=== PATIENT | female | born 1965 | race Caucasian/White ===

== ENCOUNTER 2020-03-21 01:38 | Outpatient (CLI) | payer OTHER, SELFPAY ==
[2020-03-21 18:17] LABS: SARS-CoV-2 RNA PCR Negative
== END 2020-03-21 01:39 | disposition home or self-care (01) ==
LOC: ANHCOVIDDT 01:38
PROVIDERS: PCP Family Medicine; Visit Provider Orthopaedic Surgery
DX: Z01.812 Encounter for preprocedural laboratory examination (principal); Z20.828 Contact with and (suspected) exposure to other viral communicable diseases
CPT/HCPCS: 87635; C9803; U0003

== ENCOUNTER 2020-03-21 08:26 | Outpatient (CLI) | payer OTHER, SELFPAY ==
--- NOTE | 2020-03-21 08:34 | ECG_ITS ---
Measurements Intervals [place] Rate: 62 P: 27 SC: 155 QRS: 10 QRSD: 106 T: 2 QT: 395 QTc: 404 Interpretive Statements SINUS RHYTHM WITH SINUS ARRHYTHMIA CONSIDER INFERIOR INFARCT, AGE INDETERMINATE BASELINE ARTIFACT- II, III, AVF ABNORMAL ECG Electronically Signed On 03-21-2020 9:09:16 CDT by Froy Hercules D.O.
[2020-03-21 09:30] LABS: Anion Gap 10 mmol/L (8-16); Blood Urea Nitrogen 17 mg/dL (7-17); Calcium 9.2 mg/dL (8.4-10.2); Carbon Dioxide 27 mmol/L (22-30); Chloride 104 mmol/L (98-107); Estimated Glomerular Filt Rate > 60; Glucose 103 mg/dL (65-105); Potassium 3.4 mmol/L (3.4-5.0); Sodium 141 mmol/L (137-145)
== END 2020-03-21 08:27 | disposition home or self-care (01) ==
LOC: ANHSURGERY 08:33
PROVIDERS: Anesthesiology; PCP Family Medicine; Visit Provider Orthopaedic Surgery
DX: I10 Essential (primary) hypertension (principal); Z01.818 Encounter for other preprocedural examination; R94.31 Abnormal electrocardiogram [ECG] [EKG]
CPT/HCPCS: 36415; 80048; 93005

== ENCOUNTER 2020-03-23 00:28 | Day surgery (SDC) | payer OTHER, SELFPAY ==
[2020-03-08 16:45] VITALS: BMI 39.3
--- NOTE | 2020-03-22 09:59 | WPDANESEPPF ---
Anes - Initial Pre Proc Eval Procedure: Operation Date: 03/23/20 08:30 Proposed Procedures p Right Carpal Tunnel Release - Louis Rosales MD Date/Time: 03/22/20 09:59 Surgeon: Louis Rosales MD Pre Op Diagnosis: Right Carpal Tunnel Syndrome Patient Data Age: 54 Gender: F Height: 1.57 m Weight: 97.52 kg Allergies Allergy/AdvReac Type Severity Reaction Status Date / Time No Known Allergies Allergy Verified 02/27/20 15:14 Home Medications Medication Instructions Recorded Confirmed Type ascorbate calcium (vitamin C) 500 500 mg PO DAILY 02/27/20 03/08/20 History mg tablet biotin 1,000 mcg chewable tablet 1,000 mcg PO DAILY 02/27/20 03/08/20 History clotrimazole-betamethasone 1 1 applic TOPICAL PRN PRN 02/27/20 03/08/20 History %-0.05 % topical cream hydrochlorothiazide 12.5 mg capsule 12.5 mg PO DAILY 02/27/20 03/08/20 History meloxicam 15 mg tablet 15 mg PO DAILY 02/27/20 03/08/20 History nebivolol 5 mg tablet 5 mg PO DAILY 02/27/20 03/08/20 History norethindrone 1 mg-ethinyl 1 tablet PO DAILY 02/27/20 03/08/20 History estradiol 20 mcg (24)-iron 75 mg (4) tablet omeprazole 20 mg capsule,delayed 20 mg PO DAILY 02/27/20 03/08/20 History release Patient hx anesthesia problems: none Family hx anesthesia problems: none PMFSH Past Medical History Medical History (Updated 03/22/20 @ 09:59 by Rivera Allan DO) Arthritis of carpometacarpal (CMC) joint of right thumb GERD (gastroesophageal reflux disease) Hammer toe Hypertension Plantar fasciitis Surgical History Surgical History History of elbow surgery (~01/27/18) Debridement Rt Lateral Epicondyle Family History Family History Mother Family history of malignant neoplasm Family history of arthritis Father Family history of heart disease in male family member before age 55 Social History Social History Smoking status: Never smoker Alcohol intake: current Substance use: never Living arrangements: with family Gender identity (if verbalized by the patient): Female Spiritual care concerns: No Anes - Eval Final PreProcedure Day of Procedure 03/22/20 09:59 Patient weight: obese Heart: regular rate and rhythm Lungs: clear to auscultation and normal air movement Airway: Mallampati scale class III Neurological: alert and oriented Last oral intake: >/= 8 hours ASA classification: III Emergent: no Anesthetic plan: proceed Anesthesia type and monitoring: general GIVS and standard monitoring Informed Consent: The patient's anesthetic plan and its attendant risks and benefits were discussed with the patient/family/POA. Questions were solicited and answers provided to the satisfaction of the patient/family/POA.
--- NOTE | 2020-03-23 07:26 | WPDHPUPDATE1 ---
History and Physical Update Update Date/Time: 03/23/20 07:26 History and Physical has been reviewed, including an updated exam of the patient. There are NO changes in the patient's condition. Risks, benefits, and alternatives have been discussed and questions answered. Patient agrees to proceed with procedure.
[2020-03-23] MEDS: ACETAMINOPHEN 500 MG TABLET 1000 MG PO (07:42)
[2020-03-23] MEDS: LACTATED RINGERS 1,000 ML 30 ML IV CONT (07:49)
[2020-03-23] MEDS: KETOROLAC 15 MG/ML VIAL (*BKC) IV PUSH (07:50)
[2020-03-23 07:51] VITALS: BP 145/76; PULSE 70; RESP 16; TEMP 36.7; O2SAT 100
[2020-03-23] MEDS: BUPIVACAINE/EPINEPHRINE 0.5% 10 ML VIAL INFILTRATE (08:46)
[2020-03-23 09:06] VITALS: BP 114/64; PULSE 86; RESP 20; O2SAT 97
[2020-03-23 09:36] VITALS: BP 123/71; PULSE 74; RESP 16
[2020-03-23 10:06] VITALS: BP 122/82; PULSE 62; RESP 16
--- NOTE | 2020-03-23 17:52 | PM.PROC ---
Procedure Note - Detailed Date of procedure: 03/23/20 Pre-op diagnosis: Right Carpal Tunnel Syndrome Right Carpal Tunnel Syndrome Post-op diagnosis: same Procedure performed: Carpal Tunnel Release Anesthesia: GLMA and MAC Surgeon: Louis Rosales MD Estimated blood loss (mL): 1 Complications: None Condition: stable Findings: Operative details. The hand was prepped and draped in the usual sterile fashion sedation anesthesia was given with propofol. The proposed incision was marked using typical anatomic landmarks. 4ML 0.5% Marcaine with epinephrine was injected along the incision line and at the distal forearm. The limb was exsanguinated and the tourniquet inflated to 250 millimeters of mercury. A longitudinal incision was taken sharply. Dissection was brought down to the transverse carpal ligament. Under direct vision the ligament was incised sharply. The proximal release was carried out with dissection scissors. The contents of the carpal canal were protected with a [place] elevator. The transverse carpal ligament was confirmed to be widely patent. The tourniquet was released. Hemostasis was obtained. The wound was closed with a horizontal mattress Prolene suture. A sterile bulky dressing was applied. The patient was brought to the recovery room in stable condition. There were no complications.
== END 2020-03-23 10:25 | disposition home or self-care (01) ==
PROVIDERS: PCP Family Medicine; Visit Provider Orthopaedic Surgery
PROC: (CPT 64721; principal; 2020-03-23 08:30)
DX: G56.01 Carpal tunnel syndrome, right upper limb (principal); I10 Essential (primary) hypertension; K21.9 Gastro-esophageal reflux disease without esophagitis; E66.01 Morbid (severe) obesity due to excess calories; Z68.41 Body mass index [BMI] 40.0-44.9, adult
CPT/HCPCS: 64721; A9270; J1100; J1885; J2250; J2405; J2704; J3010; J7120

== ENCOUNTER 2021-08-30 12:48 | Outpatient (CLI) | payer OTHER, SELFPAY ==
--- NOTE | 2021-08-30 13:01 | ECG_ITS ---
Measurements Intervals [place] Rate: 70 P: 12 [place]: 155 QRS: 5 QRSD: 89 T: -2 QT: 374 QTc: 404 Interpretive Statements SINUS RHYTHM MINIMAL VOLTAGE CRITERIA FOR LVH, CONSIDER NORMAL VARIANT [MEETS CRITERIA IN ONE OF: R(aVL), S(V1), R(V5), R(V5/V6)+S(V1)] CONSIDER PREVIOUS INFERIOR INFARCTION COMPARED TO ECG 03/21/2020 09:18:36 NO SIGNIFICANT CHANGES Electronically Signed On 08-30-2021 14:40:10 CDT by Marko Dugan M.D.
[2021-08-30 13:33] LABS: Anion Gap 9 mmol/L (8-16); Blood Urea Nitrogen 15 mg/dL (7-17); Calcium 8.9 mg/dL (8.4-10.2); Carbon Dioxide 25 mmol/L (22-30); Chloride 103 mmol/L (98-107); Estimated Glomerular Filt Rate > 60; Glucose 88 mg/dL (65-110); Potassium 3.5 mmol/L (3.4-5.0); Sodium 137 mmol/L (137-145)
== END 2021-08-30 12:49 | disposition home or self-care (01) ==
LOC: ANHSURGERY 12:56
PROVIDERS: Anesthesiology; PCP Family Medicine; Visit Provider Orthopaedic Surgery
DX: Z01.818 Encounter for other preprocedural examination (principal); Z51.81 Encounter for therapeutic drug level monitoring; Z79.899 Other long term (current) drug therapy; I10 Essential (primary) hypertension
CPT/HCPCS: 36415; 80048; 93005

== ENCOUNTER 2021-09-03 01:33 | Day surgery (SDC) | payer OTHER, SELFPAY ==
[2021-08-27 15:07] VITALS: BMI 44.2
--- NOTE | 2021-08-27 15:30 | PC.NURSE ---
Addendum entered by Francie Sandoval RN 08/27/21 15:32: LAST DOSE OF MELOXICAM 08/26/21 Original Note: Report to the Outpatient Waiting Room, entrance under the green pavilion located off [facility], at time 9:00 on date 09/03/21. OR Time: 11:00. - You and your visitor will be asked a series of questions to screen for COVID 19 for your protection. - A mask is required within the hospital. One visitor will be allowed to accompany the patient into the hospital. Patients visitor will be instructed to remain with patient at all times or leave the building. We will allow the visitor to come back to the postoperative area when patient is ready. Preoperative COVID Testing Requirements: No COVID Test needed if: (proof is required; if not received patient will have Rapid Test prior to entry) - Patient has received COVID Vaccine at least 14 days prior to procedure date or - Patient has positive COVID test result within last 90 days of surgery date. COVID Test needed if above criteria is not met Patients may have clear liquids (water, carbonated beverages, clear teas, apple juice) until 3 hours prior to surgery (8:00) with a maximum of 20 ounces. - No food from midnight until time of surgery Take the following medications with a SIP of water the morning of surgery: CARVEDILOL Medications to discontinue per physician: VITAMINS/SUPPLEMENTS Date to take last dose: 08/30/21 Please no make-up, nail british, hairspray, perfume, deodorant, or body powder the day of surgery. No jewelry (including any body piercings) or valuables the day of surgery, leave them at home. Please take a shower or bath the night before, or the morning of, surgery with an antibacterial soap. Wear comfortable, loose fitting clothing. - Jewelry must be removed prior to entering the operating room. Rings and piercings that are not removed may be cut off. - The hospital will not accept responsibility for valuables. - Please leave all valuables, including medications, at home the day of surgery. If you are going home after surgery, a licensed star route mail driver must drive you home. - NO public transportation without another adult. - We recommend that an adult stay with you for 24 hours following discharge. - We also recommend that you do not drive, make important decision, drink alcoholic beverages, or take any drugs that were not prescribed by your health care provider for at least 24 hours after your discharge time. Follow any additional instructions given to you from your surgeon. Telephone instructions given to FARHAN CHAKRABORTY and asked if any additional questions and then verbalized understanding. Patient advised to call surgeon office or pre surgery nurse liaison [phone] if any additional questions.
--- NOTE | 2021-09-03 07:19 | WPDHPUPDATE1 ---
History and Physical Update Update Date/Time: 09/03/21 07:19 History and Physical has been reviewed, including an updated exam of the patient. There are NO changes in the patient's condition. Risks, benefits, and alternatives have been discussed and questions answered. Patient agrees to proceed with procedure.
--- NOTE | 2021-09-03 08:02 | WPDANESEPPF ---
Anes - Initial Pre Proc Eval Procedure: Operation Date: 09/03/21 11:00 Proposed Procedures p Arthroscopic Interposition Arthroplasty Right Thumb - Louis Rosales MD Date/Time: 09/03/21 08:02 Surgeon: Louis Rosales MD Pre Op Diagnosis: arhtritis of CMC joint right thumb Patient Data Age: 56 Gender: F Height: 1.59 m Weight: 111.58 kg Allergies Allergy/AdvReac Type Severity Reaction Status Date / Time No Known Allergies Allergy Verified 08/27/21 15:04 Home Medications Medication Instructions Recorded Confirmed Type ascorbate calcium (vitamin C) 500 500 mg PO DAILY 02/27/20 08/27/21 History mg tablet biotin 1,000 mcg chewable tablet 1,000 mcg PO DAILY 02/27/20 08/27/21 History hydrochlorothiazide 12.5 mg capsule 12.5 mg PO DAILY 02/27/20 08/27/21 History meloxicam 15 mg tablet 15 mg PO DAILY 02/27/20 08/27/21 History norethindrone 1 mg-ethinyl 1 tablet PO DAILY 02/27/20 08/27/21 History estradiol 20 mcg (24)-iron 75 mg (4) tablet omeprazole 20 mg capsule,delayed 20 mg PO DAILY 02/27/20 08/27/21 History release carvedilol 6.25 mg tablet 6.25 mg PO Q12H 06/06/21 08/27/21 History calcium phos,dibas-vitamin D3 1 tablet PO DAILY 08/27/21 08/27/21 History oxycodone-acetaminophen 1 - 2 tablet PO Q4-6H PRN #30 09/03/21 Rx tablet MDD 6 Patient hx anesthesia problems: none Family hx anesthesia problems: none Results Review: All pre-operative results and documents have been reviewed as part of the pre-operative evaluation. [facility] Past Medical History Medical History Arthritis of carpometacarpal (CMC) joint of right thumb GERD (gastroesophageal reflux disease) Hammer toe Hypertension Plantar fasciitis Surgical History Surgical History History of elbow surgery (~01/27/18) Debridement Rt Lateral Epicondyle Family History Family History Mother Family history of malignant neoplasm Family history of arthritis Father Family history of heart disease in male family member before age 55 Social History Social History Smoking status: Never smoker Alcohol intake: current Alcohol use details: 3/MONTH Substance use: never Substance use type: does not use Living arrangements: with family Gender identity (if verbalized by the patient): Female Spiritual care concerns: No Anes - Eval Final PreProcedure Day of Procedure 09/03/21 08:02 Patient weight: morbidly obese Heart: regular rate and rhythm Lungs: clear to auscultation and normal air movement Airway: Mallampati scale class II Neurological: alert and oriented Last oral intake: >/= 8 hours ASA classification: III Emergent: no Anesthetic plan: proceed Anesthesia type and monitoring: general LMA and standard monitoring Results Review: All pre-operative results and documents have been reviewed as part of the pre-operative evaluation. Informed Consent: The patient's anesthetic plan and its attendant risks and benefits were discussed with the patient/family/POA. Questions were solicited and answers provided to the satisfaction of the patient/family/POA.
[2021-09-03 09:10] VITALS: BP 146/96; PULSE 82; RESP 18; TEMP 36.4; O2SAT 100
[2021-09-03] MEDS: LACTATED RINGERS 1,000 ML 30 ML IV CONT ×2 (10:08→12:25)
[2021-09-03] MEDS: KETOROLAC 15 MG/ML VIAL (*BKC) IV PUSH (10:09)
[2021-09-03] MEDS: ACETAMINOPHEN 500 MG TABLET 1000 MG PO (10:09)
[2021-09-03] MEDS: ceFAZolin 2 GM/D5W 50 ML 2 GM/50 ML BAG IVPB (10:32)
[2021-09-03] MEDS: BUPIVACAINE HCL 0.5% PF 30 ML VIAL INFILTRATE (11:06)
[2021-09-03 12:25] VITALS: BP 118/70; PULSE 90; RESP 20; TEMP 36.1; O2SAT 98
[2021-09-03 12:40] VITALS: BP 120/65; PULSE 80; RESP 18; O2SAT 100
[2021-09-03 12:55] VITALS: BP 120/60; PULSE 74; RESP 20; O2SAT 100
[2021-09-03 13:01] VITALS: BP 134/68; PULSE 76; RESP 18
[2021-09-03 13:30] VITALS: BP 129/65; PULSE 66; RESP 18
--- NOTE | 2021-09-03 15:52 | W.PM.PROC2 ---
Procedure Note - Detailed Date of Procedure 09/03/21 Pre-op Diagnosis arhtritis of CMC joint right thumb Post-op Diagnosis Same Procedure Performed Arthroscopic interposition arthroplasty, right CMC joint of the thumb. Surgeon Louis Rosales MD Motor Vehicle Lecturer Gemma Gutierrez PA-C Anesthesia General Indications Severe persistent pain despite conservative treatment including bracing and injections and therapy. Findings Complete loss of cartilage on the trapezium. Bone spurs. Description of Procedure Preoperative antibiotics were given. The patient was given a general anesthetic. The hand was prepped and draped in the usual sterile fashion. The arm was stabilized to the arm board, and a non sterile tourniquet placed. The suspension apparatus was draped sterilely. The thumb was attached to the fingertrap with 5 to 8 pounds of traction. Careful palpation revealed the location of the basal thumb joint. The limb was exsanguinated and the tourniquet inflated to 250 milliliters of mercury during the procedure. Shallow skin incisions were created for typical ulnar and radial portal sites. Careful blunt dissection was carried down to the joint, and the small joint 2.7mm arthroscope was introduced. Inspection revealed significant synovitis and degenerative changes with exposed bone. Partial resection of the trapezoid was carried out with the 2.9 millimeter gracia. Approximately 3 to 4 millimeters of bone was resected. Careful attention to the periphery of the bone was accomplished, and the tissue was carefully debrided with the shaver. The ligamentous structures were carefully preserved at the capsule. The joint space was measured. Graft jacket was cut to be folded into double thickness. The graft was brought in through the portal with a hemostat. The graft was laid in nicely and the arthroscope was used to inspect the graft and assure appropriate placement. The joint surface was well covered. The arthroscopic instruments were removed. Traction was released. The wound was closed with interrupted 3-0 Prolene suture followed by bulky dressing. A thumb spica splint was applied. The patient was extubated and brought to the recovery room in stable condition. There were no complications. 10 milliliters of 0.5% Marcaine with epinephrine was injected for additional perioperative pain control. Estimated Blood Loss -5.0 Packing No Pathology None sent Complications No immediate complications Condition Stable Disposition Same day
== END 2021-09-03 13:55 | disposition home or self-care (01) ==
PROVIDERS: PCP Family Medicine; Visit Provider Orthopaedic Surgery
PROC: (CPT 29840; principal; 2021-09-03 11:00)
DX: M18.11 Unilateral primary osteoarthritis of first carpometacarpal joint, right hand (principal); I10 Essential (primary) hypertension; K21.9 Gastro-esophageal reflux disease without esophagitis; E66.01 Morbid (severe) obesity due to excess calories; Z68.41 Body mass index [BMI] 40.0-44.9, adult
CPT/HCPCS: 25447; 36415; 80048; 93005; A4565; A9270; J0690; J1100; J1885; J2250; J2370; J2405; J2704; J3010; J7120

== ENCOUNTER 2023-01-14 13:47 | Outpatient (CLI) | payer OTHER, SELFPAY ==
--- NOTE | 2023-01-14 14:00 | ECG_ITS ---
Measurements Intervals [place] Rate: 75 P: 14 [place]: 158 QRS: 7 QRSD: 89 T: 6 QT: 366 QTc: 409 Interpretive Statements SINUS RHYTHM MINIMAL VOLTAGE CRITERIA FOR LVH, CONSIDER NORMAL VARIANT [MEETS CRITERIA IN ONE OF: R(aVL), S(V1), R(V5), R(V5/V6)+S(V1)] POOR R-WAVE PROGRESSION, pOSSIBLE ANTERIOR MYOCARDIAL INFARCTION Low voltage COMPARED TO ECG 08/30/2021 13:11:25 NO SIGNIFICANT CHANGES Electronically Signed On 01-14-2023 14:27:30 CDT by Nani Curry M.D.
[2023-01-14 14:35] LABS: Anion Gap 9 mmol/L (8-16); Blood Urea Nitrogen 15 mg/dL (7-17); Calcium 9.5 mg/dL (8.4-10.2); Carbon Dioxide 28 mmol/L (22-30); Chloride 101 mmol/L (98-107); Estimated Glomerular Filt Rate > 60; Glucose 108 mg/dL (65-110); Potassium 3.3 mmol/L (3.4-5.0); Sodium 138 mmol/L (137-145)
== END 2023-01-14 13:48 | disposition home or self-care (01) ==
LOC: ANHSURGERY 13:58
PROVIDERS: Anesthesiology; PCP Family Medicine; Visit Provider Orthopaedic Surgery
DX: Z79.899 Other long term (current) drug therapy (principal); I10 Essential (primary) hypertension; Z01.818 Encounter for other preprocedural examination
CPT/HCPCS: 36415; 80048; 93005

== ENCOUNTER 2023-01-19 01:35 | Day surgery (SDC) | payer OTHER, SELFPAY ==
[2023-01-12 13:35] VITALS: BMI 43.2
--- NOTE | 2023-01-12 13:41 | PC.NURSE ---
Report to the Outpatient Waiting Room, entrance under the green pavilion located off [facility], at time 1:00 on date 01/19/23. Planned Procedure Time: 3:00. Time changes happen often and if your time is changed the preop area will call you the afternoon before. - You and your visitor will be asked to self-screen and do not enter if you have any COVID symptoms. - A mask is optional within the hospital at this time. Patients may have clear liquids (water, carbonated beverages, clear teas, apple juice) until 3 hours prior to surgery (12:00) with a maximum of 20 ounces. - No food from midnight until time of surgery Take the following medications with a SIP of water the morning of surgery: CARVEDILOL DO NOT STOP ANY OF YOUR OTHER PRESCRIPTION MEDICATIONS PRIOR TO SURGERY ?EXCEPT THE FOLLOWING Medications to discontinue per physician: VITAMINS/SUPPLEMENTS Date to take last dose: 01/15/23 STOP MELOXICAM 7 DAYS PRIOR TO PROCEDURE Please no make-up, nail nauruan, hairspray, perfume, deodorant, or body powder the day of surgery. No jewelry (including any body piercings) or valuables the day of surgery, leave them at home. Please take a shower or bath the night before, or the morning of, surgery with an antibacterial soap. Wear comfortable, loose fitting clothing. - Jewelry must be removed prior to entering the operating room. Rings and piercings that are not removed may be cut off. - The hospital will not accept responsibility for valuables. - Please leave all valuables, including medications, at home the day of surgery. If you are going home after surgery, a licensed team cdl driver must drive you home. - NO public transportation without another adult if you receive anesthesia. - We recommend that an adult stay with you for 24 hours following discharge. - We also recommend that you do not drive, make important decision, drink alcoholic beverages, or take any drugs that were not prescribed by your health care provider for at least 24 hours after your discharge time. Follow any additional instructions given to you from your surgeon. If you or anyone in your household have experienced Covid symptoms in the past week, please notify your surgeon or the nurse liaison at the phone number below for possible testing. Telephone instructions given to PT - FARHAN CHAKRABORTY and asked if any additional questions and then verbalized understanding. Patient advised to call surgeon office or pre surgery nurse liaison [phone] if any additional questions.
[2023-01-19] VITALS (7 sets, daily range): BP systolic 120–140; BP diastolic 66–92; PULSE 62–95; RESP 14–18; TEMP 36.3–36.4; O2SAT 94–100
--- NOTE | 2023-01-19 08:56 | WPDANESEPPF ---
Anes - Initial Pre Proc Eval Procedure: Operation Date: 01/19/23 15:00 Proposed Procedures p Right Trigger Thumb Release - Louis Rosales MD Date/Time: 01/19/23 08:56 Surgeon: Louis Rosales MD Pre Op Diagnosis: Right Trigger Thumb Patient Data Age: 57 Gender: F Height: 1.59 m Weight: 108.9 kg Allergies Allergy/AdvReac Type Severity Reaction Status Date / Time No Known Allergies Allergy Verified 01/19/23 13:51 Home Medications Medication Instructions Recorded Confirmed Type ascorbate calcium (vitamin C) 500 500 mg PO DAILY 02/27/20 01/14/23 History mg tablet biotin 1,000 mcg chewable tablet 1,000 mcg PO DAILY 02/27/20 01/14/23 History hydrochlorothiazide 12.5 mg capsule 12.5 mg PO DAILY 02/27/20 01/14/23 History meloxicam 15 mg tablet 15 mg PO DAILY 02/27/20 01/14/23 History omeprazole 20 mg capsule,delayed 20 mg PO DAILY 02/27/20 01/14/23 History release carvedilol 6.25 mg tablet 6.25 mg PO Q12H 06/06/21 01/19/23 History calcium carbonate 600 mg-vitamin 1 tablet PO DAILY 01/12/23 01/14/23 History D3 5 mcg (200 unit) tablet Patient hx anesthesia problems: none Family hx anesthesia problems: none Results Review: All pre-operative results and documents have been reviewed as part of the pre-operative evaluation. [facility] Past Medical History Medical History Arthritis of carpometacarpal (CMC) joint of right thumb GERD (gastroesophageal reflux disease) Hammer toe Hypertension Plantar fasciitis Surgical History Surgical History History of elbow surgery (~01/27/18) Debridement Rt Lateral Epicondyle History of hand surgery (~09/03/21) CMC Arthroplasty Family History Family History Mother Family history of malignant neoplasm Family history of arthritis Father Family history of heart disease in male family member before age 55 Social History Social History (Reviewed 01/14/23 @ 15:02 by MAK Tang Smoking status: Never smoker Alcohol intake: current Drinks per week: 1 Alcohol use details: 3/MONTH Substance use: never Substance use type: does not use Lack of Transportation: No Lack of Food: Never True Current Housing: I Have Housing Concerned About Future Housing: No Difficulty Paying Gas/Electric Bills: No Difficulty Paying for Meds: No Currently Unemployed: No Education: Bachelor's Degree Difficulty w/ Childcare or Family Care: No Living arrangements: with family Gender identity (if verbalized by the patient): Female Spiritual care concerns: No Anes - Eval Final PreProcedure Day of Procedure 01/19/23 08:56 Patient weight: morbidly obese Heart: regular rate and rhythm Lungs: clear to auscultation Airway: Mallampati scale class II Neurological: alert and oriented Last oral intake: >/= 8 hours ASA classification: III Emergent: no Anesthetic plan: proceed Anesthesia type and monitoring: general LMA and standard monitoring Results Review: All pre-operative results and documents have been reviewed as part of the pre-operative evaluation. Informed Consent: The patient's anesthetic plan and its attendant risks and benefits were discussed with the patient/family/POA. Questions were solicited and answers provided to the satisfaction of the patient/family/POA.
[2023-01-19] MEDS: LACTATED RINGERS 1,000 ML 30 ML IV CONT (13:30)
[2023-01-19] MEDS: ACETAMINOPHEN 500 MG TABLET 1000 MG PO (13:30)
[2023-01-19] MEDS: KETOROLAC 15 MG/ML VIAL (*BKC) IV PUSH (13:30)
[2023-01-19] MEDS: ceFAZolin 2 GM/D5W 50 ML 2 GM/50 ML BAG IVPB (15:02)
--- NOTE | 2023-01-19 15:02 | WPDHPUPDATE1 ---
History and Physical Update Update Date/Time: 01/19/23 15:02 History and Physical has been reviewed, including an updated exam of the patient. There are NO changes in the patient's condition. Risks, benefits, and alternatives have been discussed and questions answered. Patient agrees to proceed with procedure.
--- NOTE | 2023-01-19 15:03 | W.PM.PROC2 ---
Procedure Note - Detailed Date of Procedure 01/19/23 Pre-op Diagnosis Right Trigger Thumb Post-op Diagnosis Same Procedure Performed Right trigger thumb release. Surgeon Louis Rosales MD Anesthesia General Description of Procedure General anesthetic administered. 3ML .25% Marcaine injection at the MCP flexion crease. Transverse incision over the palpable nodule. Blunt dissection to the A1 chuckie. Sharp division of the chuckie. The flexor tendons pulled into the wound and complete release confirmed. Wound closed with nylon suture. Sterile bulky dressing applied. Tourniquet used during procedure. Estimated Blood Loss 1 Complications No immediate complications Condition Stable Disposition PACU [facility] Billing Surgery - Charge Forward: Surgery Billing
[2023-01-19] MEDS: BUPIVACAINE/EPINEPHRINE 0.25% 50 ML VIAL INFILTRATE (15:27)
[2023-01-19] MEDS: oxyCODONE HCL (*CRX) 5 MG TAB IR PO (16:52)
== END 2023-01-19 15:10 | disposition home or self-care (01) ==
PROVIDERS: PCP Family Medicine; Visit Provider Orthopaedic Surgery
PROC: (CPT 26055; principal; 2023-01-19 15:00)
DX: M65.311 Trigger thumb, right thumb (principal); K21.9 Gastro-esophageal reflux disease without esophagitis; I10 Essential (primary) hypertension
CPT/HCPCS: 26055; 36415; 80048; 93005; A9270; J0690; J1100; J1885; J2405; J2704; J3010; J7120

== ENCOUNTER 2024-02-23 12:36 | Outpatient (CLI) | payer OTHER, SELFPAY ==
--- NOTE | ~2024-02-23 | MR_ITS ---
MRI of the right knee Clinical history: Pain, meniscal tear Technique: Coronal proton density and proton density-weighted images, sagittal proton-density and T2 fat-sat images, and axial proton-density fat-saturated images were acquired. Findings: Anterior and posterior cruciate ligaments are intact. Medial collateral ligament and the la teral collateral ligament complex are intact. Popliteus tendon is intact. There are probable radial tear at the posterior root of the medial meniscus. No lateral meniscal tear evident. There is grade IV chondromalacia the patellar apex with probable reactive marrow edema at the subchon dral plate inferior aspect of the patella. There is extensive mild to moderate chondromalacia the fem oral trochlea. There is high-grade condylar shown on both sides of the medial compartment. Extensor mechanism is intact. Small to moderate joint effusion present. Small Gordon cyst present. Impression: Radial tear at the posterior root of the medial meniscus. 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 Small to moderate joint effusion with small Gordon's cyst. Reviewed, dictated and finalized at [facility]. Impression: Radial tear at the posterior root of the medial meniscus. 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 Small to moderate joint effusion with small Gordon's cyst.
== END 2024-02-23 12:37 | disposition home or self-care (01) ==
PROVIDERS: PCP Family Medicine; Visit Provider Orthopaedic Surgery
DX: S83.241A Other tear of medial meniscus, current injury, right knee, initial encounter (principal); M22.41 Chondromalacia patellae, right knee; M25.461 Effusion, right knee; M71.21 Synovial cyst of popliteal space [Baker], right knee
CPT/HCPCS: 73721

== ENCOUNTER 2024-03-23 12:29 | Outpatient (CLI) | payer OTHER, SELFPAY ==
--- NOTE | 2024-03-23 12:33 | ECG_ITS ---
Test Date: 2024-03-23 13:01:38 Measurements Intervals [place] Rate: 66 P: 16 PA: 162 QRS: 3 QRSD: 88 T: -1 QT: 381 QTc: 400 Interpretive Statements SINUS RHYTHM MINIMAL VOLTAGE CRITERIA FOR LVH, CONSIDER NORMAL VARIANT [MEETS CRITERIA IN ONE OF: R(aVL), S(V1), R(V5), R(V5/V6)+S(V1)] POSSIBLE ANTERIOR MYOCARDIAL INFARCTION [30 ms Q WAVE IN V3/V4, OR R < 0.2 mV IN V4], PROBABLY OLD No previous ECG available for comparison Electronically Signed On 03-23-2024 14:49:15 CDT by Josesito Morgan M.D.
[2024-03-23 13:43] LABS: Anion Gap 9 mmol/L (4-12); Blood Urea Nitrogen 16 mg/dL (7-17); Calcium 9.5 mg/dL (8.4-10.2); Carbon Dioxide 28 mmol/L (22-30); Chloride 102 mmol/L (98-107); Estimated Glomerular Filt Rate > 60; Glucose 79 mg/dL (65-110); Potassium 3.4 mmol/L (3.4-5.0); Sodium 139 mmol/L (137-145)
== END 2024-03-23 12:30 | disposition home or self-care (01) ==
PROVIDERS: Anesthesiology; PCP Family Medicine; Visit Provider Orthopaedic Surgery
DX: I10 Essential (primary) hypertension (principal); Z79.899 Other long term (current) drug therapy
CPT/HCPCS: 36415; 80048; 93005

== ENCOUNTER 2024-03-29 00:59 | Day surgery (SDC) | payer OTHER, SELFPAY ==
[2024-03-17 13:48] VITALS: BMI 43.9
--- NOTE | 2024-03-17 13:50 | PC.NURSE ---
Report to the Outpatient Waiting Room, entrance under the green pavilion located off [facility], at time _1100_ on date _[id number]_. Planned Procedure Time: _1pm_.? Time changes happen often and if your time is changed the preop area will call you the afternoon before. - You and your visitor will be asked to self-screen and do not enter if you have any COVID symptoms. Please call surgeon if you need to reschedule. - A mask is optional within the hospital at this time. Patients may have clear liquids (water, carbonated beverages, clear teas, apple juice) until 3 hours prior to surgery with a maximum of 20 ounces. - No food from midnight until time of surgery and no smoking Take only the following medications with a SIP of water on the morning of surgery: ___Carvidilol___ DO NOT STOP ANY OF YOUR OTHER PRESCRIPTION MEDICATIONS PRIOR TO SURGERY EXCEPT THE FOLLOWING Medications to discontinue per physician __Meloxicam stop 03-23-2024, Hold all vitamins [id number]___ Please no make-up, nail irish, hairspray, perfume, deodorant, or body powder the day of surgery.? No jewelry (including any body piercings) or valuables the day of surgery, leave them at home.? Please take a shower or bath the night before, or the morning of, surgery with an antibacterial soap.? Wear comfortable, loose fitting clothing.? - Jewelry must be removed prior to entering the operating room.? Rings and piercings that are not removed may be cut off. - The hospital will not accept responsibility for valuables.? - Please leave all valuables, including medications, at home the day of surgery. If you are going home after surgery, a licensed customer service driver must drive you home.? - NO public transportation without another adult if you receive anesthesia. - We recommend that an adult stay with you for 24 hours following discharge. - We also recommend that you do not drive, make important decision, drink alcoholic beverages, or take any drugs that were not prescribed by your health care provider for at least 24 hours after your discharge time. Follow any additional instructions given to you from your surgeon. Telephone instructions given to _Ling___and asked if any additional questions and then verbalized understanding. Patient advised to call surgeon office or pre surgery nurse liaison [phone] if any additional questions.
[2024-03-29] VITALS (7 sets, daily range): BP systolic 119–154; BP diastolic 65–88; PULSE 60–84; RESP 14–21; TEMP 36.2–37.3; O2SAT 96–100
--- NOTE | 2024-03-29 07:25 | WPDHPUPDATE1 ---
History and Physical Update Update Date/Time: 03/29/24 07:25 History and Physical has been reviewed, including an updated exam of the patient. There are NO changes in the patient's condition. Risks, benefits, and alternatives have been discussed and questions answered. Patient agrees to proceed with procedure.
[2024-03-29] MEDS: LACTATED RINGERS 1,000 ML 30 ML IV CONT ×2 (11:00→12:35)
[2024-03-29] MEDS: ACETAMINOPHEN 500 MG TABLET 1000 MG PO (11:15)
--- NOTE | 2024-03-29 11:18 | P.PNAN_ITS ---
Anes - Initial Pre Proc Eval Procedure: Operation Date: 03/29/24 13:00 Proposed Procedures p Right Knee Arthroscopic Partial Medial Meniscectomy - Louis Rosales MD Date/Time: 03/29/24 11:18 Surgeon: Louis Rosales MD Pre Op Diagnosis: Rt Knee Medial Meniscus Tear Patient Data Age: 58 Gender: F Height: 1.59 m Weight: 110.9 kg Allergies Allergy/AdvReac Type Severity Reaction Status Date / Time No Known Allergies Allergy Verified 03/23/24 13:30 Home Medications Medication Instructions Recorded Confirmed Type ascorbate calcium (vitamin C) 500 500 mg PO DAILY 02/27/20 03/17/24 History mg tablet biotin 1,000 mcg chewable tablet 1,000 mcg PO DAILY 02/27/20 03/17/24 History hydrochlorothiazide 12.5 mg capsule 12.5 mg PO DAILY 02/27/20 03/17/24 History meloxicam 15 mg tablet 15 mg PO DAILY 02/27/20 03/17/24 History omeprazole 20 mg capsule,delayed 20 mg PO DAILY 02/27/20 03/17/24 History release carvedilol 6.25 mg tablet 6.25 mg PO Q12H 06/06/21 03/17/24 History calcium 600 mg (as 1 tablet PO DAILY 01/12/23 03/17/24 History carbonate)-vitamin D3 5 mcg (200 unit) tablet tramadol 50 mg tablet 50 mg PO Q6H PRN pain #30 tabs 01/15/24 03/17/24 Rx Patient hx anesthesia problems: none Family hx anesthesia problems: none Results Review: All pre-operative results and documents have been reviewed as part of the pre- operative evaluation. [facility] Past Medical History Medical History Arthritis of carpometacarpal (CMC) joint of right thumb GERD (gastroesophageal reflux disease) Hammer toe Hypertension Plantar fasciitis Surgical History Surgical History History of elbow surgery (~01/27/18) Debridement Rt Lateral Epicondyle History of hand surgery (~09/03/21) CMC Arthroplasty Hx of hand surgery (~11/21/22) Rt Thumb Trigger Finger Release Family History Family History Mother Family history of malignant neoplasm Family history of arthritis Father Family history of heart disease in male family member before age 55 Social History Social History Smoking status: Never smoker Alcohol intake: current Drinks per week: 1 Alcohol use details: 3/MONTH Substance use: never Substance use type: does not use Do You Feel Safe in your Home?: Yes Lack of Transportation: No Lack of Food: Never True Current Housing: I Have Housing Concerned About Future Housing: No Difficulty Paying Gas/Electric Bills: No Difficulty Paying for Meds: No Currently Unemployed: No Education: Bachelor's Degree Difficulty w/ Childcare or Family Care: No Living arrangements: with family Gender identity (if verbalized by the patient): Female Spiritual care concerns: No Anes - Eval Final PreProcedure Day of Procedure 03/29/24 11:18 Patient weight: morbidly obese Heart: regular rate and rhythm Lungs: clear to auscultation Airway: Mallampati scale class II Neurological: alert and oriented Last oral intake: >/= 8 hours ASA classification: III Emergent: no Anesthetic plan: proceed Anesthesia type and monitoring: general LMA and standard monitoring Results Review: All pre-operative results and documents have been reviewed as part of the pre- operative evaluation. Informed Consent: The patient's anesthetic plan and its attendant risks and benefits were discussed with the patient/family/POA. Questions were solicited and answers provided to the satisfaction of the patient/family/POA.
[2024-03-29] MEDS: KETOROLAC 15 MG/ML VIAL (*BKC) IV PUSH (11:45)
[2024-03-29] MEDS: ceFAZolin 2 GM/D5W 50 ML 2 GM/50 ML BAG IVPB (11:52)
[2024-03-29] MEDS: BUPIVACAINE/EPINEPHRINE 0.5% 50 ML VIAL 30 ML INFILTRATE (12:11)
--- NOTE | 2024-03-29 13:49 | W.PM.PROC2 ---
Procedure Note - Detailed Date of Procedure 03/29/24 Pre-op Diagnosis Rt Knee Medial Meniscus Tear Post-op Diagnosis Same Procedure Performed Arthroscopic partial medial meniscectomy, right knee. Surgeon Louis Rosales MD Steam Pressure Chamber Operator Gemma Gutierrez PA-C Anesthesia General Findings Moderate posterior horn tear. Root tear also appeared to have partially healed. Partial posterior horn meniscectomy. Good stable remaining rim. 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 Tibia grade 1 chondromalacia medially. The lateral compartment with mild grade 1 chondromalacia and minimal fraying of the meniscus. Description of Procedure The patient was identified and the surgical site confirmed and signed in the preoperative holding area. Antibiotics were started per protocol, and the patient was brought to the operative room and transferred to the OR table. A general anesthetic was administered. Supine position with the operative lower extremity position in the leg [place] after placement of a well padded tourniquet. The leg support was lowered and the contralateral limb was supported with a soft bolster. The knee was prepped and draped in the usual sterile fashion. A time-out was performed. The portal sites were marked and infiltrated with 0.5% Marcaine 20 mL. The limb was exsanguinated and the tourniquet inflated to 300 mL Hg. Standard inferolateral and inferomedial portals were established. Inflow was obtained with the saline pump. The camera was introduced. Diagnostic inspection of the joint was accomplished. The meniscus was debrided with the arthroscopic shaver and punches until stable. Gentle chondroplasty performed on the medial femoral condyle. The arthroscopic instruments were removed. The tourniquet released and wounds closed with subcutaneous 4-0 Monocryl absorbable suture. Steri strips and a sterile dressing were applied. A light elastic wrap was placed. The patient was extubated and brought to the recovery room in stable condition. Estimated Blood Loss 5 Drains No Complications No immediate complications Condition Stable Disposition PACU [facility] Billing Surgery - Charge Forward: Surgery Billing
== END 2024-03-29 14:03 | disposition home or self-care (01) ==
PROVIDERS: PCP Family Medicine; Visit Provider Orthopaedic Surgery
PROC: (CPT 29870; principal; 2024-03-29 13:00)
DX: S83.241A Other tear of medial meniscus, current injury, right knee, initial encounter (principal); I10 Essential (primary) hypertension; M94.261 Chondromalacia, right knee; M17.11 Unilateral primary osteoarthritis, right knee; K21.9 Gastro-esophageal reflux disease without esophagitis; X58.XXXA Exposure to other specified factors, initial encounter; M18.11 Unilateral primary osteoarthritis of first carpometacarpal joint, right hand; E66.01 Morbid (severe) obesity due to excess calories; Z68.41 Body mass index [BMI] 40.0-44.9, adult; Z79.891 Long term (current) use of opiate analgesic; Z79.899 Other long term (current) drug therapy; Z98.890 Other specified postprocedural states; Z80.9 Family history of malignant neoplasm, unspecified; Z82.49 Family history of ischemic heart disease and other diseases of the circulatory system
CPT/HCPCS: 29881; A9270; J0690; J1100; J1885; J2003; J2250; J2405; J2704; J3010; J7120